=== PATIENT | female | born 1965 | race Caucasian/White ===

== ENCOUNTER 2021-07-31 08:38 | Outpatient (CLI) | payer OTHER, SELFPAY ==
[2021-07-31 10:05] LABS: Absolute Lymphocyte Count 1.35 X10^3/uL (0.83-4.51); Absolute Neutrophil Count 2.5 X10^3/uL (2.0-7.7); Basophil# 0.03 X10^3/uL; Basophil% 0.7 % (0-1); Eosinophil# 0.06 X10^3/uL; Eosinophils% 1.4 % (0-5); Hematocrit 38.5 % (37-47); Hemoglobin 12.9 g/dL (12.0-15.0); Lymphocyte # 1.35 X10^3/ul (0.83-4.51); Lymphocyte % 31.6 % (19-41); Mean Corp Hgb Conc 33.5 g/dL (32-36); Mean Corpuscular Hgb 31.3 pg (27.0-32.0); Mean Corpuscular Volume 93.4 fL (81-99); Mean Platelet Vol. 9.8 fl (6.2-12.0); Monocyte# 0.33 X10^3/uL; Monocyte% 7.7 % (0-10); NRBC Flagged by Analyzer 0 % (0-5); Neutrophil # 2.48 X10^3/uL (2.7-7.7); Neutrophil % 58.1 % (47-70); Platelet Count 221 K/mm3 (150-450); RBC Distribution Width CV 12.4 % (11.6-14.6); RBC Distribution Width SD 42.6 fl (35.1-43.9); Red Blood Count 4.12 M/mm3 (4.2-5.4); White Blood Count 4.3 K/mm3 (4.4-11.0)
[2021-07-31 10:16] LABS: PTHIN 43.4 pg/mL (18.4-80.1)
[2021-07-31 10:34] LABS: Calcium,Total 9.4 mg/dL (8.5-10.1); Ferritin 223 ng/mL (8-252); T4 Free Direct 0.88 ng/dL (0.76-1.46); Thyroid Stim Hormone (TSH) 2.44 uIU/mL (0.358-3.74)
[2021-07-31 10:47] LABS: T3 Total - Triiodothyronine 1.28 ng/mL (0.6-1.81)
[2021-08-02 13:44] LABS: Thyroid Peroxidase AB 20 IU/mL (0-34)
== END 2021-07-31 23:59 | disposition home or self-care (01) ==
PROVIDERS: Referring Provider Dermatology Pediatric Dermatology; Visit Provider Dermatology Pediatric Dermatology
DX: D64.9 Anemia, unspecified (principal); C07 Malignant neoplasm of parotid gland; C50.911 Malignant neoplasm of unspecified site of right female breast; L64.8 Other androgenic alopecia
CPT/HCPCS: 36415; 82310; 82330; 82728; 83970; 84439; 84443; 84480; 85025; 86038; 86376